=== PATIENT | female | born 1990 | race Caucasian/White ===

== ENCOUNTER 2016-12-06 10:06 | Emergency (ER) | payer OTHER ==
[~2016-12-06] VITALS: Ht 160 cm; Wt 56.2 kg
[~2016-12-06 10:06] MED LIST: AMOXICILLIN500 M1 PO; APRI1 EACH PO; Motrin PO; TYLENOL WITH C1 EACH PO
[2016-12-06 10:29] LABS: ADD MIUA? YES; BILIRUBIN NEGATIVE; BLOOD MODERATE; COLOR YELLOW ((YELLOW)); GLUCOSE (STRIP) NEGATIVE; KETONES NEGATIVE; LEUKOCYTES SMALL; NITRITE POSITIVE; PROTEIN (STRIP) NEGATIVE; UROBILINOGEN 0.2 MG/DL (0.2-1.0)
[2016-12-06 10:35] LABS: BACTERIA 3+ /HPF; EPITHELIAL CELLS 1+ /HPF; MUCUS 4+ /LPF; RED BLOOD CELLS TNTC /HPF (0-5); UCUL ADDED? YES; WHITE BLOOD CELLS 30-40 /HPF (0-5)
[2016-12-06 10:44] LABS: HEMATOCRIT 47.7 % (36.0-46.0); MCH 28.8 PG (29.0-34.0); MCHC 33.8 G/DL (30.0-36.0); MCV 85.3 FL (83-99); MEAN PLAT.VOLUME 9.2 uM^3 (9.5-12.4); PLATELET COUNT 270 K/uL (156-360); RBC DIS.WIDTH-CV 12.7 % (11.8-14.6); RBC DIS.WIDTH-SD 39.6 % (39-53); RED BLOOD COUNT 5.59 M/uL (3.80-5.20); WHITE BLOOD COUNT 11.1 K/uL (4.1-10.2)
[2016-12-06 10:54] LABS: CHLORIDE 105 mEq/L (99-109); POTASSIUM 4.3 mEq/L (3.7-5.4); SODIUM 138 mEq/L (136-147)
[2016-12-06 10:56] LABS: GLUCOSE 89 mg/dL (70-99)
[2016-12-06 10:57] LABS: ANION GAP 9 MEQ/L (2-14)
[2016-12-06 10:58] LABS: TOTAL BILIRUBIN 0.7 mg/dL (0.0-1.0)
[2016-12-06 11:00] LABS: ALKALINE PHOSPHATASE 71 IU/L (3-129); GFR ESTIMATE (CALCULATED) > 59 mL/min/
[2016-12-06 11:01] LABS: UREA NITROGEN (BUN) 12 mg/dL (9-23)
[2016-12-06 11:08] LABS: QUANTITATIVE HCG < 4.0 MIU/ML
[2016-12-06 11:50] LABS: LIPASE 11 U/L (1.0-51.0)
[2016-12-06] MEDS ORDERED: ZOFRAN ODT4 MG PO (16:20)
[2016-12-06] MEDS ORDERED: KEFLEX500 MG PO (16:20)
[2016-12-06 16:39] VITALS: BP 94/63
== END 2016-12-06 16:41 | disposition home or self-care (01) ==
LOC: EME 10:06
PROVIDERS: Nurse Practitioner Family
DX: N39.0 Urinary tract infection, site not specified (principal); R10.11 Right upper quadrant pain; F11.21 Opioid dependence, in remission; F17.200 Nicotine dependence, unspecified, uncomplicated
CPT/HCPCS: 71275; 80053; 81003; 83690; 84702; 85027; 85379; 87077; 87086; 87186; 99281; 99285; J0696; J1885; J7030; J7050